=== PATIENT | female | born 1930 | race Caucasian/White ===

== ENCOUNTER 2018-08-23 07:01 | Inpatient (IN) ==
[2018-08-23] MEDS ORDERED: ceFAZolin 2 GM Premix Inj 2 GM/50 ML PIGGYBACK IV.SIG ONE (07:07)
[2018-08-23] MEDS ORDERED: Diphtheria/Tetanus/Pertussis Vaccine Inj 0.5 ML Syringe IM ONE (07:07)
[2018-08-23 07:21] LABS: Baso # (Auto) 0.1 th/mm3 (0.0-0.2); Baso % (Auto) 0.7 % (0.0-2.0); Eos # (Auto) 0.2 th/mm3 (0.0-0.4); Eos % (Auto) 1.8 % (0.0-4.0); Hematocrit 40.8 % (35.0-46.0); Hemoglobin 13.2 gm/dL (11.6-15.3); Lymph # (Auto) 3.1 th/mm3 (1.0-4.8); Lymph % (Auto) 30.7 % (9.0-44.0); Mean Corpuscular HGB Conc 32.5 % (32.0-36.0); Mean Corpuscular Hemoglobin 27.8 pg (27.0-34.0); Mean Corpuscular Volume 85.8 fL (80.0-100.0); Mean Platelet Volume 7.8 fL (7.0-11.0); Mono # (Auto) 0.7 th/mm3 (0.0-0.9); Mono % (Auto) 6.6 % (0.0-8.0); Neut % (Auto) 60.2 % (16.0-70.0); Platelet Count 249 th/mm3 (150-450); Red Blood Count 4.75 mil/mm3 (4.00-5.30); Red Cell Distribution Width 15.4 % (11.6-17.2)
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
[2018-08-23 07:31] LABS: Prothrombin Time 10.2 sec (9.8-11.6)
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
[2018-08-23 08:54] LABS: Bacteria,Urine Many /hpf; Bilirubin,Urine Negative (Negative); Clarity,Urine Cloudy (Clear); Color,Urine Straw (Yellw/Straw); Glucose,Urine (UA) 500 or Greater mg/dL (Negative); Leukocyte Esterase,Urine Large (Negative); Nitrite,Urine Positive (Negative); Specific Gravity,Urine 1.031 (1.002-1.035)
--- NOTE | 2018-08-23 08:58 | ED ---
HPI General Chief complaint: Trauma Stated complaint: Trauma Alert Level 2 Time Seen by Provider: 08/23/18 08:56 Source: patient and EMS Mode of arrival: EMS Limitations: altered mental status Related Data Home Medications Medication Instructions Recorded Confirmed amitriptyline 25 mg PO DAILY 08/23/18 08/23/18 amlodipine 10 mg PO DAILY 08/23/18 08/23/18 atenolol 25 mg PO DAILY 08/23/18 08/23/18 donepezil 10 mg PO DAILY 08/23/18 08/23/18 fluticasone 2 spray INTRANASAL DAILY 08/23/18 08/23/18 insulin aspart U-100 [Novolog 15 unit SUBCUT BID 08/23/18 08/23/18 Flexpen U-100 Insulin] insulin glargine [Lantus Solostar 30 unit SUBCUT HS 08/23/18 08/23/18 U-100 Insulin] multivitamin 1 tab PO DAILY 08/23/18 08/23/18 pantoprazole 40 mg PO DAILY 08/23/18 08/23/18 potassium chloride 20 meq PO DAILY 08/23/18 08/23/18 sucralfate 1 g PO Q6H 08/23/18 08/23/18 Allergies Allergy/AdvReac Type Severity Reaction Status Date / Time No Known Allergies Allergy Verified 08/23/18 07:53 [facility] Medical History Medical History Atherosclerotic heart disease (Acute) Dementia (Acute) Diabetes (Acute) Surgical History Surgical History History of bowel resection (Acute) Hx of cholecystectomy (Acute) Family History Family History Other Family history non-contributory Social History Social History Substance History: No History of Abuse Second Hand Smoke Exposure: No Smoking Status: Former smoker Tobacco Type: Cigarettes How Often Do You Have a Drink Containing Alcohol: 2 to 4 times a month Procedures Laceration Laceration 1: Site: scalp Size (cm): 12 Description: flap and irregular Depth: simple, single layer Anesthetic used: with epi Anesthesia technique:: local infiltration Amount (mL): 5 Pre-repair:: irrigated extensively and extensive debridement Skin layer closed with: alan Number of sutures:: 25 Laceration 2: Site: lower extremity Side (If applicable): right Size (cm): 7 Description: flap Anesthetic used: with epi Amount (mL): 4 Pre-repair:: irrigated extensively Skin layer closed with: alan Number of sutures:: 9 Course Initial Documented Vital Signs Pulse Oximetry 98 08/23/18 07:03 Last Documented Vital Signs Temperature 98.2 F 08/24/18 00:00 Pulse Rate 91 H 08/24/18 00:00 Respiratory Rate 18 08/24/18 00:00 Blood Pressure 121/64 08/24/18 00:00 Pulse Oximetry 96 08/24/18 00:00 Medical Decision Making MDM Narrative Medical Screen Exam Complete: Yes Emergency Medical Condition: Yes Lab Data Result diagrams: 08/24/18 06:13 08/24/18 06:13 Lab Results 08/23/18 08/23/18 08/23/18 Range/Units 07:05 07:05 07:05 WBC 10.0 (4.0-11.0) th/mm3 RBC 4.75 (4.00-5.30) mil/mm3 Hgb 13.2 (11.6-15.3) gm/dL POC Hgb (Calc) 13.6 (11.6-15.3) g/dL Hct 40.8 (35.0-46.0) % POC Hct 40.0 (35-46.0) % MCV 85.8 (80.0-100.0) fL MCH 27.8 (27.0-34.0) pg MCHC 32.5 (32.0-36.0) % RDW 15.4 (11.6-17.2) % Plt Count 249 (150-450) th/mm3 MPV 7.8 (7.0-11.0) fL Neut % (Auto) 60.2 (16.0-70.0) % Lymph % (Auto) 30.7 (9.0-44.0) % [place] % (Auto) 6.6 (0.0-8.0) % Eos % (Auto) 1.8 (0.0-4.0) % Baso % (Auto) 0.7 (0.0-2.0) % Neut # (Auto) 6.0 (1.8-7.7) th/mm3 Lymph # (Auto) 3.1 (1.0-4.8) th/mm3 [place] # (Auto) 0.7 (0.0-0.9) th/mm3 Eos # (Auto) 0.2 (0.0-0.4) th/mm3 Baso # (Auto) 0.1 (0.0-0.2) th/mm3 WBC Differential . Differential Comment Auto diff final PT 10.2 (9.8-11.6) sec INR 1.0 Ratio APTT 24.0 L (24.3-30.1) sec POC Sodium 138 (137-144) mmol/L POC Potassium 4.0 (3.6-5.0) mmol/L POC Chloride 102 (102-111) mmol/L POC BUN 25 H (5-21) mg/dL POC Creatinine 1.2 (0.6-1.3) mg/dL POC Glucose 347 H (68-110) mg/dL Urine Color (Yellw/Straw) Urine Clarity (Clear) Urine pH (5.0-8.5) Ur Specific [place] (1.002-1.035) Urine Protein (Neg-Trace) mg/dL Urine Glucose (UA) (Negative) mg/dL Urine Ketones (Negative) mg/dL Urine Occult Blood (Negative) Urine Nitrate (Negative) Urine Bilirubin (Negative) Urine Urobilinogen (Less than 2) mg/dL Ur Leukocyte Esterase (Negative) Urine RBC (0-3) /hpf Urine WBC (0-5) /hpf Urine WBC Clumps (None) Urine Bacteria (None) /hpf Micro UA Comment Ur Microscopic Review Urine Culture Comments Serum Alcohol (0-5) mg/dL Blood Type Antibody Screen 08/23/18 08/23/18 08/23/18 Range/Units 07:05 07:05 08:40 WBC (4.0-11.0) th/mm3 RBC (4.00-5.30) mil/mm3 Hgb (11.6-15.3) gm/dL POC Hgb (Calc) (11.6-15.3) g/dL Hct (35.0-46.0) % POC Hct (35-46.0) % MCV (80.0-100.0) fL MCH (27.0-34.0) pg MCHC (32.0-36.0) % RDW (11.6-17.2) % Plt Count (150-450) th/mm3 MPV (7.0-11.0) fL Neut % (Auto) (16.0-70.0) % Lymph % (Auto) (9.0-44.0) % [place] % (Auto) (0.0-8.0) % Eos % (Auto) (0.0-4.0) % Baso % (Auto) (0.0-2.0) % Neut # (Auto) (1.8-7.7) th/mm3 Lymph # (Auto) (1.0-4.8) th/mm3 [place] # (Auto) (0.0-0.9) th/mm3 Eos # (Auto) (0.0-0.4) th/mm3 Baso # (Auto) (0.0-0.2) th/mm3 WBC Differential Differential Comment PT (9.8-11.6) sec INR Ratio APTT (24.3-30.1) sec POC Sodium (137-144) mmol/L POC Potassium (3.6-5.0) mmol/L POC Chloride (102-111) mmol/L POC BUN (5-21) mg/dL POC Creatinine (0.6-1.3) mg/dL POC Glucose (68-110) mg/dL Urine Color Straw (Yellw/Straw) Urine Clarity Cloudy H (Clear) Urine pH 5.0 (5.0-8.5) Ur Specific [place] 1.031 (1.002-1.035) Urine Protein Negative (Neg-Trace) mg/dL Urine Glucose (UA) 500 or greater (Negative) mg/dL Urine Ketones Negative (Negative) mg/dL Urine Occult Blood Moderate H (Negative) Urine Nitrate Positive H (Negative) Urine Bilirubin Negative (Negative) Urine Urobilinogen Less than 2 (Less than 2) mg/dL Ur Leukocyte Esterase Large H (Negative) Urine RBC 27 H (0-3) /hpf Urine WBC 138 H (0-5) /hpf Urine WBC Clumps Few H (None) Urine Bacteria Many H (None) /hpf Micro UA Comment Culture indicated Ur Microscopic Review Not Reportable Urine Culture Comments Culture indicated Serum Alcohol Less than 3 (0-5) mg/dL Blood Type A Positive Antibody Screen Negative 08/23/18 08/23/18 08/23/18 Range/Units 12:36 16:03 20:04 WBC (4.0-11.0) th/mm3 RBC (4.00-5.30) mil/mm3 Hgb (11.6-15.3) gm/dL POC Hgb (Calc) (11.6-15.3) g/dL Hct (35.0-46.0) % POC Hct (35-46.0) % MCV (80.0-100.0) fL MCH (27.0-34.0) pg MCHC (32.0-36.0) % RDW (11.6-17.2) % Plt Count (150-450) th/mm3 MPV (7.0-11.0) fL Neut % (Auto) (16.0-70.0) % Lymph % (Auto) (9.0-44.0) % [place] % (Auto) (0.0-8.0) % Eos % (Auto) (0.0-4.0) % Baso % (Auto) (0.0-2.0) % Neut # (Auto) (1.8-7.7) th/mm3 Lymph # (Auto) (1.0-4.8) th/mm3 [place] # (Auto) (0.0-0.9) th/mm3 Eos # (Auto) (0.0-0.4) th/mm3 Baso # (Auto) (0.0-0.2) th/mm3 WBC Differential Differential Comment PT (9.8-11.6) sec INR Ratio APTT (24.3-30.1) sec POC Sodium (137-144) mmol/L POC Potassium (3.6-5.0) mmol/L POC Chloride (102-111) mmol/L POC BUN (5-21) mg/dL POC Creatinine (0.6-1.3) mg/dL POC Glucose 240 H 261 H 282 H (68-110) mg/dL Urine Color (Yellw/Straw) Urine Clarity (Clear) Urine pH (5.0-8.5) Ur Specific [place] (1.002-1.035) Urine Protein (Neg-Trace) mg/dL Urine Glucose (UA) (Negative) mg/dL Urine Ketones (Negative) mg/dL Urine Occult Blood (Negative) Urine Nitrate (Negative) Urine Bilirubin (Negative) Urine Urobilinogen (Less than 2) mg/dL Ur Leukocyte Esterase (Negative) Urine RBC (0-3) /hpf Urine WBC (0-5) /hpf Urine WBC Clumps (None) Urine Bacteria (None) /hpf Micro UA Comment Ur Microscopic Review Urine Culture Comments Serum Alcohol (0-5) mg/dL Blood Type Antibody Screen 08/24/18 Range/Units 06:13 WBC 14.4 H (4.0-11.0) th/mm3 RBC 4.82 (4.00-5.30) mil/mm3 Hgb 13.2 (11.6-15.3) gm/dL POC Hgb (Calc) (11.6-15.3) g/dL Hct 41.5 (35.0-46.0) % POC Hct (35-46.0) % MCV 86.1 (80.0-100.0) fL MCH 27.4 (27.0-34.0) pg MCHC 31.8 L (32.0-36.0) % RDW 15.4 (11.6-17.2) % Plt Count 247 (150-450) th/mm3 MPV 8.6 (7.0-11.0) fL Neut % (Auto) 70.2 H (16.0-70.0) % Lymph % (Auto) 19.3 (9.0-44.0) % [place] % (Auto) 9.5 H (0.0-8.0) % Eos % (Auto) 0.3 (0.0-4.0) % Baso % (Auto) 0.7 (0.0-2.0) % Neut # (Auto) 10.1 H (1.8-7.7) th/mm3 Lymph # (Auto) 2.8 (1.0-4.8) th/mm3 [place] # (Auto) 1.4 H (0.0-0.9) th/mm3 Eos # (Auto) 0.0 (0.0-0.4) th/mm3 Baso # (Auto) 0.1 (0.0-0.2) th/mm3 WBC Differential . Differential Comment Auto diff final PT (9.8-11.6) sec INR Ratio APTT (24.3-30.1) sec POC Sodium (137-144) mmol/L POC Potassium (3.6-5.0) mmol/L POC Chloride (102-111) mmol/L POC BUN (5-21) mg/dL POC Creatinine (0.6-1.3) mg/dL POC Glucose (68-110) mg/dL Urine Color (Yellw/Straw) Urine Clarity (Clear) Urine pH (5.0-8.5) Ur Specific [place] (1.002-1.035) Urine Protein (Neg-Trace) mg/dL Urine Glucose (UA) (Negative) mg/dL Urine Ketones (Negative) mg/dL Urine Occult Blood (Negative) Urine Nitrate (Negative) Urine Bilirubin (Negative) Urine Urobilinogen (Less than 2) mg/dL Ur Leukocyte Esterase (Negative) Urine RBC (0-3) /hpf Urine WBC (0-5) /hpf Urine WBC Clumps (None) Urine Bacteria (None) /hpf Micro UA Comment Ur Microscopic Review Urine Culture Comments Serum Alcohol (0-5) mg/dL Blood Type Antibody Screen Imaging Data Radiologist's impression: Knee X-Ray 08/23/18 00:00 CONCLUSION: Negative for fracture Chest X-Ray 08/23/18 07:03 CONCLUSION: Prominent cardiac silhouette otherwise negative Pelvis X-Ray 08/23/18 07:03 CONCLUSION: Limited exam, no displaced fracture. Abdomen/Pelvis CT 08/23/18 07:10 CONCLUSION: 1. Negative for acute traumatic injury 2. Extensive degenerative changes lower lumbar spine and both SI joints. Cervical Spine CT 08/23/18 07:10 CONCLUSION: 1. Extensive degenerative changes without fracture. 2. Prominent right lobe of the thyroid dominant mass incompletely evaluated on today's exam. 3. Lung apex clear. Chest CT 08/23/18 07:10 CONCLUSION: 1. Negative for pneumothorax. 2. 3 cm mass right lobe of thyroid 3. Negative for fracture Head CT 08/23/18 07:10 CONCLUSION: 1. Negative for acute process . Discharge Plan Discharge Disposition Patient Disposition: 30 Still Patient Discharge Condition Condition: Stable Discharge Details Diagnosis: Delirium, UTI (urinary tract infection) Physicians Team ED Provider: Dallin Judge ED Midlevel Provider: Jess Ray Primary Care Provider: Iker Villa Attending Provider: Miguel Acevedo Status ED Status: Left Department Discharge Information Discharge Date/Time: 08/23/18 12:00
[2018-08-23] MEDS ORDERED: Bisacodyl 10 MG Supp RECTAL PRN (09:48)
[2018-08-23] MEDS ORDERED: Dextrose 50% in Water 50 ML Vial IV.PUSH PRN (09:48)
[2018-08-23] MEDS: Insulin NovoLOG Aspart Correctional Sugar Inj SQ SCH ×3 (12:58→20:15)
--- NOTE | 2018-08-23 16:42 | P.HPIM ---
History of Present Illness Service: [place] [facility] Primary Care Physician: Iker Villa MD History of Present Illness: The patient is in her mid 80s. She resides at an [facility]. She was riding her motorized wheelchair on the sidewalk this morning on her way to [facility] She reports she hit an uneven pavement which caused her to fall and she hit her head against a tree. Patient denies loss of consciousness. She was brought in as a trauma alert. She sustained a laceration over her head and right knee. The patient had multiple scans that were negative for fractures. She was evaluated by the trauma surgeon in cleared for admission to the medical service. The patient was found to have a possible UTI and was delirium. Also obviously was not able to ambulate therefore recommended to admit to the medical service. Inpatient Certification: I certify that the inpatient services were ordered in accordance with Medicare regulations governing the order. This includes certification that hospital inpatient services are reasonable and necessary and in the case of services not specified as inpatient-only under 42 CFR 419.22(n), that they are appropriately provided as inpatient services in accordance to with the 2-midnight benchmark under 43 CFR 412.3(e) Estimated Total Length of Stay (Days): 2 Plans for Post Hospital Care: Not yet determined Review of Systems All other systems reviewed negative except as stated in HPI [facility] - History History Provided By: Patient - Medical History Medical History: Medical History (Last Updated 08/23/18 @ 18:41 by Monica Torres MD) Atherosclerotic heart disease Dementia Diabetes - Surgical History Surgical History: Surgical History (Last Updated 08/23/18 @ 18:42 by Monica Torres MD) History of bowel resection Hx of cholecystectomy - Family History Family History: Family History (Last Updated 08/23/18 @ 18:42 by Monica Torres MD) Other Family history non-contributory - Tobacco History Second Hand Smoke Exposure: No Tobacco Use In Past 30 Days: No Smoking Status: Former smoker Tobacco Type: Cigarettes - Alcohol History How Often Do You Have a Drink Containing Alcohol: 2 to 4 times a month - Substance Use History Substance History: No History of Abuse - Immunization History Tetanus Immunization: >5 Years Hx Influenza Vaccine This Season: No Medications and Allergies Active Medications: Active Medications Al Hydroxide/Mg Hydroxide (Milk Of Magnesia Liq) 30 ml PO Q12H PRN PRN Reason: Mild Constipation Bisacodyl (Dulcolax Supp) 10 mg RECTAL DAILY PRN PRN Reason: SEVERE CONSITIPATION Dextrose (D50w Vial) 50 ml IV.PUSH UNSCH PRN PRN Reason: PER HYPOGLYCEMIA PROTOCOL Glucagon (Glucagon Inj) 1 mg OTHER UNSCH PRN PRN Reason: for Hypoglycemia Protocol Insulin Aspart (Novolog Insulin Correctional Sugar Inj) 0 unit SQ ACHS MARTA; Protocol Last Admin: 08/23/18 16:11 Dose: 5 unit Lactulose (Lactulose Liq) 30 ml PO DAILY PRN PRN Reason: SEVERE CONSITIPATION Sennosides (Senokot) 17.2 mg PO Q12H PRN PRN Reason: Moderate Constipation Allergies Allergy/AdvReac Type Severity Reaction Status Date / Time No Known Allergies Allergy Verified 08/23/18 07:53 Home Medications Medication Instructions Recorded Confirmed Type amitriptyline 25 mg PO DAILY 08/23/18 08/23/18 History amlodipine 10 mg PO DAILY 08/23/18 08/23/18 History atenolol 25 mg PO DAILY 08/23/18 08/23/18 History donepezil 10 mg PO DAILY 08/23/18 08/23/18 History fluticasone 2 spray INTRANASAL DAILY 08/23/18 08/23/18 History insulin aspart U-100 [Novolog 15 unit SUBCUT BID 08/23/18 08/23/18 History Flexpen U-100 Insulin] insulin glargine [Lantus Solostar 30 unit SUBCUT HS 08/23/18 08/23/18 History U-100 Insulin] multivitamin 1 tab PO DAILY 08/23/18 08/23/18 History pantoprazole 40 mg PO DAILY 08/23/18 08/23/18 History potassium chloride 20 meq PO DAILY 08/23/18 08/23/18 History sucralfate 1 g PO Q6H 08/23/18 08/23/18 History Exam Vital signs: Vital Signs 08/23/18 07:03 08/23/18 08:00 08/23/18 08:10 Temperature Pulse Rate 84 Respiratory Rate 18 Blood Pressure 150/67 H Pulse Oximetry 98 98 98 08/23/18 10:00 08/23/18 11:00 08/23/18 12:00 Temperature 97.7 F Pulse Rate 86 88 91 H Respiratory Rate 19 20 18 Blood Pressure 133/62 142/65 H 159/67 H Pulse Oximetry 97 97 98 08/23/18 16:00 Temperature 97.9 F Pulse Rate 91 H Respiratory Rate 18 Blood Pressure 146/68 H Pulse Oximetry 98 Intake & Output 08/22/18 08/23/18 08/23/18 18:59 06:59 18:59 Intake Total 150 / 150 Balance 150 / 150 Weight 92.986 kg Intake: IV 150 / 150 Ancef 2 GM Premix Inj 2 gm In 50 / 50 50 ml @ 0 mls/hr IV.SIG .STK- MED ONE Rx#:[id number] Rocephin Inj 1,000 MG In NS Inj 100 / 100 100 ML @ 200 mls/hr IV.SIG ONCE ONE Rx#:[id number] Other: # Voids 1 Date of Last Bowel Movement 08/22/18 Narrative: CONSTITUTIONAL/GENERAL: Elderly female in no acute distress. Vital signs reviewed SKIN: Scalp has a large laceration that has been repaired with alan. Large right knee laceration that was repaired with alan. HEAD: See above EYES: Pupils equal and round and reactive. Extra ocular motions are intact. No scleral icterus. No injection or drainage. ENT: Hearing grossly normal. Nose without drainage. Throat without visible erythema, exudates, masses, or lesions. NECK: Trachea midline. Neck is supple, non-tender. No palpable thyroid enlargement or nodularity. CARDIOVASCULAR: Normal rate and regular rhythm without murmurs, gallops, or rubs. No JVD. Peripheral pulses 2+ and symmetric. RESPIRATORY/CHEST: Symmetric, unlabored respirations. Breath sounds equal and clear to auscultation bilaterally. No wheezes, crackles, rales, or rhonchi. GASTROINTESTINAL: Abdomen soft, non-tender, non-distended. No hepato- splenomegaly, or palpable masses. No guarding. Bowel sounds present. MUSCULOSKELETAL: Large laceration on the right knee that was repaired with alan. No joint tenderness or effusion noted. No calf tenderness. No mottling or clubbing. NEUROLOGICAL: Awake and alert. Motor and sensory grossly within normal limits. Follows commands. Move all extremities spontaneously. No focal deficits. PSYCHIATRIC: No obvious mood problems. No apparent hallucinations or other psychotic thought process. Results - Labs CBC & Chem 7: 08/23/18 07:05 Labs: Short CBC 08/23/18 Range/Units 07:05 WBC 10.0 (4.0-11.0) th/mm3 Hgb 13.2 (11.6-15.3) gm/dL Hct 40.8 (35.0-46.0) % Plt Count 249 (150-450) th/mm3 Urine 08/23/18 Range/Units 08:40 Urine Color Straw (Yellw/Straw) Urine Clarity Cloudy H (Clear) Urine pH 5.0 (5.0-8.5) Ur Specific [place] 1.031 (1.002-1.035) Urine Protein Negative (Neg-Trace) mg/dL Urine Glucose (UA) 500 or greater (Negative) mg/dL - Imaging Impressions Knee X-Ray 08/23/18 00:00 CONCLUSION: Negative for fracture Chest X-Ray 08/23/18 07:03 CONCLUSION: Prominent cardiac silhouette otherwise negative Pelvis X-Ray 08/23/18 07:03 CONCLUSION: Limited exam, no displaced fracture. Abdomen/Pelvis CT 08/23/18 07:10 CONCLUSION: 1. Negative for acute traumatic injury 2. Extensive degenerative changes lower lumbar spine and both SI joints. Cervical Spine CT 08/23/18 07:10 CONCLUSION: 1. Extensive degenerative changes without fracture. 2. Prominent right lobe of the thyroid dominant mass incompletely evaluated on today's exam. 3. Lung apex clear. Chest CT 08/23/18 07:10 CONCLUSION: 1. Negative for pneumothorax. 2. 3 cm mass right lobe of thyroid 3. Negative for fracture Head CT 08/23/18 07:10 CONCLUSION: 1. Negative for acute process . Caprini VTE Risk Assessment Caprini VTE Risk Assessment: Moderate/High Risk (score >= 2) VTE Pharmacological Exception Reason: High risk for bleeding Caprini Risk Assessment Model: Point Value = 1 Point Value = 2 Point Value = 3 Point Value = 5 Age 41-60 Minor surgery BMI > 25 kg/m2 Swollen legs Varicose veins or History of unexplained or recurrent spontaneous Oral contraceptives or hormone replacement Sepsis (< 1 month) Serious lung disease, including pneumonia (< 1 month) Abnormal pulmonary function Acute myocardial infarction Congestive heart failure (< 1 month) History of inflammatory bowel disease Medical patient at bed rest Age 61-74 Arthroscopic surgery Major open surgery (> 45 min) Laparoscopic surgery (> 45 min) Malignancy Confined to bed (> 72 hours) Immobilizing plaster cast Central venous access Age >= 75 History of VTE Family history of VTE Factor V Leiden Prothrombin [id number] Lupus anticoagulant Anticardiolipin antibodies Elevated serum homocysteine Heparin-induced thrombocytopenia Other congenital or acquired thrombophilia Stroke (< 1 month) Elective arthroplasty Hip, pelvis, or leg fracture Acute spinal cord injury (< 1 month) Prophylaxis Regimen: Total Risk Factor Score Risk Level Prophylaxis Regimen 0-1 Low Early ambulation 2 Moderate Order ONE of the following: *Sequential Compression Device (SCD) *Heparin 5000 units SQ BID 3-4 Higher Order ONE of the following medications: *Heparin 5000 units SQ TID *Enoxaparin/Lovenox 40 mg SQ daily (WT < 150 kg, CrCl > 30 mL/min) *Enoxaparin/Lovenox 30 mg SQ daily (WT < 150 kg, CrCl > 10-29 mL/min) *Enoxaparin/Lovenox 30 mg SQ BID (WT < 150 kg, CrCl > 30 mL/min) AND/OR *Sequential Compression Device (SCD) 5 or more Highest Order ONE of the following medications: *Heparin 5000 units SQ TID (Preferred with Epidurals) *Enoxaparin/Lovenox 40 mg SQ daily (WT < 150 kg, CrCl > 30 mL/min) *Enoxaparin/Lovenox 30 mg SQ daily (WT < 150 kg, CrCl > 10-29 mL/min) *Enoxaparin/Lovenox 30 mg SQ BID (WT < 150 kg, CrCl > 30 mL/min) AND *Sequential Compression Device (SCD) Assessment and Plan - Plan 89-year-old female resident of an [facility] brought in as a trauma alert after she fell off her motorized wheelchair Trauma alert after accidental fall from motorized: Patient sustained a large scalp laceration and right knee laceration. Status post repair by ED staff with alan. -CT of the abdomen, chest, pelvis, cervical spine with no acute fractures. - Patient evaluated by trauma surgeon in the emergency room and cleared for admission to the medical service. -Physical therapy to evaluate. Will likely need SNF placement. - Pain control UTI: Abnormal urinalysis suggestive of UTI - Continue Rocephin. - Follow urine cultures. Delirium/Dementia: Patient was more delirious on presentation. Mental status have improved. Per her son, she gets more delirious with UTI. - UTI being treated as above. - Continue home dose dementia medications. Diabetes: - Continue long-acting insulin and sliding scale insulin with Accu-Cheks. Hypertension: - Continue antihypertensives including Norvasc and atenolol. Discussed Condition With: Dr. Judge H&P: Quality - VTE Deep Vein Thrombosis/Pulmonary Embolism Present on Admission: No
[2018-08-23] MEDS ORDERED: Morphine Inj 4 MG/ML Vial IV.PUSH PRN (18:16)
[2018-08-23] MEDS: Sucralfate 1 GM Tablet PO SCH ×2 (19:02→23:45)
[2018-08-23] MEDS: Insulin Detemir Inj 1,000 UNIT/10 ML Vial SQ SCH (20:15)
[2018-08-24] MEDS: Sucralfate 1 GM Tablet PO SCH ×3 (06:03→18:24)
[2018-08-24 07:25] LABS: Baso # (Auto) 0.1 th/mm3 (0.0-0.2); Baso % (Auto) 0.7 % (0.0-2.0); Eos % (Auto) 0.3 % (0.0-4.0); Hematocrit 41.5 % (35.0-46.0); Hemoglobin 13.2 gm/dL (11.6-15.3); Lymph # (Auto) 2.8 th/mm3 (1.0-4.8); Lymph % (Auto) 19.3 % (9.0-44.0); Mean Corpuscular HGB Conc 31.8 % (32.0-36.0); Mean Corpuscular Hemoglobin 27.4 pg (27.0-34.0); Mean Corpuscular Volume 86.1 fL (80.0-100.0); Mean Platelet Volume 8.6 fL (7.0-11.0); Mono # (Auto) 1.4 th/mm3 (0.0-0.9); Mono % (Auto) 9.5 % (0.0-8.0); Neut # (Auto) 10.1 th/mm3 (1.8-7.7); Neut % (Auto) 70.2 % (16.0-70.0); Platelet Count 247 th/mm3 (150-450); Red Blood Count 4.82 mil/mm3 (4.00-5.30); Red Cell Distribution Width 15.4 % (11.6-17.2); White Blood Count 14.4 th/mm3 (4.0-11.0)
[2018-08-24 07:44] LABS: Calcium 9.1 mg/dL (8.5-10.1); Potassium 4.1 meq/L (3.5-5.1)
[2018-08-24] MEDS ORDERED: amLODIPine 10 MG Tablet PO SCH (09:00)
[2018-08-24] MEDS: Amitriptyline 25 MG Tablet PO SCH (09:04)
[2018-08-24] MEDS: Atenolol 25 MG Tablet PO SCH (09:04)
[2018-08-24] MEDS: Insulin NovoLOG Aspart Correctional Sugar Inj SQ SCH ×4 (09:05→21:43)
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
[2018-08-24] MEDS: Insulin Detemir Inj 1,000 UNIT/10 ML Vial SQ SCH (21:43)
[2018-08-25] MEDS: Sucralfate 1 GM Tablet PO SCH ×4 (01:32→18:03)
[2018-08-25] MEDS: Amitriptyline 25 MG Tablet PO SCH (08:36)
[2018-08-25] MEDS: Atenolol 25 MG Tablet PO SCH (08:37)
[2018-08-25] MEDS: Insulin NovoLOG Aspart Correctional Sugar Inj SQ SCH ×4 (08:38→22:09)
[2018-08-25] MEDS ORDERED: amLODIPine 5 MG Tablet PO SCH (09:00)
[2018-08-25 13:21] LABS: Baso # (Auto) 0.1 th/mm3 (0.0-0.2); Baso % (Auto) 0.5 % (0.0-2.0); Eos # (Auto) 0.1 th/mm3 (0.0-0.4); Hematocrit 39.8 % (35.0-46.0); Lymph # (Auto) 2.9 th/mm3 (1.0-4.8); Lymph % (Auto) 19.5 % (9.0-44.0); Mean Corpuscular HGB Conc 32.7 % (32.0-36.0); Mean Corpuscular Hemoglobin 28.7 pg (27.0-34.0); Mean Corpuscular Volume 87.7 fL (80.0-100.0); Mean Platelet Volume 8.8 fL (7.0-11.0); Mono # (Auto) 1.3 th/mm3 (0.0-0.9); Mono % (Auto) 8.6 % (0.0-8.0); Neut # (Auto) 10.3 th/mm3 (1.8-7.7); Neut % (Auto) 70.4 % (16.0-70.0); Platelet Count 250 th/mm3 (150-450); Red Blood Count 4.54 mil/mm3 (4.00-5.30); Red Cell Distribution Width 15.7 % (11.6-17.2); White Blood Count 14.7 th/mm3 (4.0-11.0)
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
[2018-08-25] MEDS: amLODIPine 5 MG Tablet PO SCH (22:09)
[2018-08-25] MEDS: Insulin Detemir Inj 1,000 UNIT/10 ML Vial SQ SCH (22:09)
[2018-08-26] MEDS: Sucralfate 1 GM Tablet PO SCH ×4 (02:47→18:41)
[2018-08-26] MEDS: Insulin NovoLOG Aspart Correctional Sugar Inj SQ SCH ×4 (10:19→22:15)
[2018-08-26] MEDS: Amitriptyline 25 MG Tablet PO SCH (10:20)
[2018-08-26] MEDS: amLODIPine 5 MG Tablet PO SCH ×2 (10:21→22:14)
[2018-08-26] MEDS: Atenolol 25 MG Tablet PO SCH (10:21)
[2018-08-26 12:41] LABS: Baso # (Auto) 0.1 th/mm3 (0.0-0.2); Baso % (Auto) 0.6 % (0.0-2.0); Eos # (Auto) 0.3 th/mm3 (0.0-0.4); Eos % (Auto) 2.5 % (0.0-4.0); Hematocrit 40.8 % (35.0-46.0); Hemoglobin 13.1 gm/dL (11.6-15.3); Lymph # (Auto) 2.5 th/mm3 (1.0-4.8); Lymph % (Auto) 21.8 % (9.0-44.0); Mean Corpuscular HGB Conc 32.1 % (32.0-36.0); Mean Corpuscular Hemoglobin 27.9 pg (27.0-34.0); Mean Corpuscular Volume 87.1 fL (80.0-100.0); Mono % (Auto) 8.6 % (0.0-8.0); Neut # (Auto) 7.5 th/mm3 (1.8-7.7); Neut % (Auto) 66.5 % (16.0-70.0); Platelet Count 252 th/mm3 (150-450); Red Blood Count 4.69 mil/mm3 (4.00-5.30); Red Cell Distribution Width 15.7 % (11.6-17.2); White Blood Count 11.4 th/mm3 (4.0-11.0)
[2018-08-26 12:57] LABS: Calcium 9.2 mg/dL (8.5-10.1); Carbon Dioxide 30.4 meq/L (21.0-32.0)
[2018-08-26 13:23] LABS: Thyroid Stimulating Hormone 0.836 uIU/mL (0.358-3.740)
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
[2018-08-26] MEDS: Insulin Detemir Inj 1,000 UNIT/10 ML Vial SQ SCH (22:14)
[2018-08-27] MEDS: Sucralfate 1 GM Tablet PO SCH ×3 (01:45→11:56)
[2018-08-27] MEDS: Insulin NovoLOG Aspart Correctional Sugar Inj SQ SCH ×2 (08:12→11:56)
[2018-08-27] MEDS: Atenolol 25 MG Tablet PO SCH (08:25)
[2018-08-27] MEDS: amLODIPine 5 MG Tablet PO SCH (08:25)
[2018-08-27] MEDS: Amitriptyline 25 MG Tablet PO SCH (08:25)
[2018-08-27 08:32] LABS: Baso % (Auto) 0.4 % (0.0-2.0); Eos # (Auto) 0.2 th/mm3 (0.0-0.4); Eos % (Auto) 1.9 % (0.0-4.0); Hematocrit 40.2 % (35.0-46.0); Hemoglobin 13.1 gm/dL (11.6-15.3); Lymph # (Auto) 2.2 th/mm3 (1.0-4.8); Lymph % (Auto) 19.8 % (9.0-44.0); Mean Corpuscular HGB Conc 32.5 % (32.0-36.0); Mean Corpuscular Hemoglobin 28.2 pg (27.0-34.0); Mean Corpuscular Volume 86.8 fL (80.0-100.0); Mean Platelet Volume 8.8 fL (7.0-11.0); Mono # (Auto) 0.9 th/mm3 (0.0-0.9); Neut % (Auto) 69.9 % (16.0-70.0); Platelet Count 278 th/mm3 (150-450); Red Blood Count 4.63 mil/mm3 (4.00-5.30); Red Cell Distribution Width 15.3 % (11.6-17.2); White Blood Count 11.4 th/mm3 (4.0-11.0)
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
== END 2018-08-27 16:19 ==
LOC: NEPI 07:01 → EDBD 09:47 → MERGE 09:47 → NEDA 09:47 → N07 12:00
PROVIDERS: ADMIT Hospitalist; ATTEND Hospitalist